=== PATIENT | female | born 1970 | race Caucasian/White ===

== ENCOUNTER 2016-08-04 20:15 | Inpatient (IN) | payer OTHER ==
--- NOTE | ~2016-08-04 | HP ---
Unit #: [id number] #: [id number] Patient: BETH OROZCO [id number] [place] [address] [id number] I MR#: [id number] NAME: BETH OROZCO. ROOM: 64 Age: 46 Sex: F Admission Date: 08/04/2016 : 1970 Attending Physician: Joo Davidson M.D. Admitting Physician: Joo Davidson M.D. Primary Care Physician: Generic Doctor Not In System HISTORY AND PHYSICAL HISTORY OF PRESENT ILLNESS Beth is a 46 year old admitted to [address] [place] [address] with depression and verbalizing wanting to hurt herself. PAST MEDICAL HISTORY 1. Herpes simplex. 2. High blood pressure. 3. Diabetes mellitus. 4. Asthma. 5. Patient was recently diagnosed with a UTI. PAST SURGICAL HISTORY 1. Right carpal tunnel release. 2. x1. 3. Cholecystectomy. 4. Tubal ligation. 5. Uterine ablation. 6. T and A. ALLERGIES No known drug allergies. SOCIAL HISTORY She denies cigarettes, alcohol and illicit drug use. FAMILY HISTORY Medically noncontributory. REVIEW OF SYSTEMS CONSTITUTIONAL: No fever or chills. HEENT: Denies any sore throat, ear pain or runny nose. CARDIOVASCULAR: Denies chest pain, irregular heart rhythm or palpitations. CHEST: Denies shortness of breath or cough. No hemoptysis. GASTROINTESTINAL: Denies nausea, vomiting, diarrhea or chronic constipation. ENDOCRINE: Denies history of increased thirst or urination. No recent significant weight loss or gain. GENITOURINARY: Denies dysuria, frequency, or hematuria. SKIN: Denies any rashes. HEMATOLOGIC: Denies history of increased bleeding or bruising. MUSCULOSKELETAL: Denies any hot, swollen joints. No generalized muscle pain. NEUROLOGIC: Denies problems with vision or speech. No frequent, severe Unit #: [id number] #: [id number] Patient: BETH OROZCO headaches. No numbness, tingling or weakness in any extremities. Denies loss of bladder or bowel control. CURRENT MEDICATIONS 1. HCTZ 25 mg daily. 2. Tenormin 50 mg daily. 3. Abreva topically t.i.d. 4. Zovirax 200 mg 5 times a day x5 days. 5. Glucophage 1000 mg b.i.d. 6. Ambien 5 mg q.h.s. p.r.n. 7. Prozac 20 mg daily. 8. Melatonin p.r.n. 9. Milk of Magnesia p.r.n. 10. Maalox p.r.n. 11. Tylenol p.r.n. 12. Levemir 10 units q.h.s. 13. NovoLog per sliding scale. PHYSICAL EXAMINATION GENERAL: Alert, obese, in no apparent distress. VITAL SIGNS: Blood pressure 150/84, heart rate 80, respirations 16, temperature 98.6. WEIGHT: 135. HEIGHT: 5 feet 0 inches. SKIN: Multiple herpetic lesions noted along upper and lower lip. HEENT: Normocephalic. TMs not viewed. Oral and nasal passages clear. Conjunctivae clear. PERRLA. EOMs intact. NECK: Supple without lymphadenopathy or thyromegaly. HEART: Regular rate and rhythm without murmur. LUNGS: Clear. ABDOMEN: Soft, nontender. : Not done. EXTREMITIES: No evidence of cyanosis, clubbing or edema. Moves all without focal deficit. NEUROLOGICAL: Grossly within normal limits. Cranial Nerves: II: Visual rm are intact. III, IV AND : Extraocular movements are intact. Pupils are equal, round and reactive to light. V: Facial sensation is grossly normal. VII: Facial movements and expression are normal. VIII: Auditory acuity grossly intact. IX, X: Uvula is midline. Phonation is normal. XI: Patient shrugs shoulders and turns head normally. XII: Tongue protrudes in the midline. Sensory and Motor Function: Sensory and motor sensation is grossly normal. Motor: moves all extremities well. Coordination: Gait is normal. Deep Tendon Reflexes: Intact. IMPRESSION Psychiatric admission. RECOMMENDATIONS PSYCHIATRIC: Per psychiatrist. MEDICAL: 1. See no contraindications to participate in facility's activities. 2. Continue Bactrim DS 1 p.o. b.i.d. x3 days, from the emergency room. MEDICAL PROGNOSIS Good. Unit #: [id number] #: [id number] Patient: BETH OROZCO MEDICAL CONDITION Stable. Dictated by... Montse Quintana P.A.-C. for Terry Anderson/fanny TD: 08/05/2016 20:28 JOB #: [id number] HISTORY AND PHYSICAL Page 1 of 1 X Montse Quintana HISTORY AND PHYSICAL
--- NOTE | ~2016-08-04 | CO ---
Unit #: [id number] #: [id number] Patient: LAMBERTO OROZCO [id number] [place] [address] [id number] MR#: [id number] NAME: LAMBERTO OROZCO. ROOM: [facility] Age: 46 Sex: F Admission Date: 08/04/2016 : 1970 Attending Physician: Joo Davidson M.D. Primary Care Physician: Generic Doctor Not In System Consultation Date: 08/05/2016 CONSULTATION REPORT WOODY Campos is a 46-year-old who was recently diagnosed with the UTI. She was started on Bactrim DS. This was outlined and discussed in her admission H and P dated 08/05/2016. Please see H and P dated 08/05/2016. Dictated by... Montse Quintana P.A.-C. for Terry Anderson/mikhail TD: 08/11/2016 02:06 JOB #: [id number] CONSULTATION REPORT Page 1 of 1 X Montse Quintana CONSULTATION REPORT
--- NOTE | ~2016-08-04 | DS ---
Unit #: [id number] #: [id number] Patient: LAMBERTO OROZCO [id number] [facility] [address] [place] [address] [id number] I MR#: [id number] NAME: LAMBERTO OROZCO. ROOM: [facility] Age: 46 Sex: F Admission Date: 08/04/2016 : 1970 Discharge Date: 08/06/2016 Attending Physician: Joo Davidson M.D. Primary Care Physician: Generic Doctor Not In System DISCHARGE SUMMARY REASON FOR ADMISSION The patient is a 46-year-old white female, admitted to the [facility] after reporting suicidal ideation. HOSPITAL COURSE The patient was admitted to the [facility] and placed on suicide precautions. She was begun on fluoxetine, a medication to which she reported history of positive response at a dose of 20 mg daily. She tolerated the medication well. Additionally, Ambien 5 mg at h.s. was added and the patient was started on Bactrim for urinary tract infection as well as acyclovir for a fever blister. By 08/06/2016, the patient was in much brighter spirits and requested discharge and she vehemently denied suicidal ideation and as per her request, discharge was ordered. FINAL DIAGNOSES Major depressive disorder, recurrent, mild; herpes simplex virus-1; urinary tract infection; hypertension; diabetes mellitus. DISPOSITION ON DISCHARGE The patient is discharged on the following medications; Levemir 10 units at bedtime for diabetic management, NovoLog sliding scale for diabetic management, Prozac 20 mg daily for depression, Zovirax 200 mg 5 times daily for fever blister, Ambien 5 mg at h.s. p.r.n. insomnia, Abreva apply t.i.d. for fever blister relief, Glucophage 1000 mg b.i.d. before meals for diabetic management, Tenormin 50 mg once daily for hypertension, Oretic 25 mg once daily for hypertension, Bactrim DS one tablet b.i.d. x3 days for urinary tract infection. DISCHARGE INSTRUCTIONS No dietary or physical restrictions were placed upon the patient at the time of discharge. FOLLOWUP Followup will take place through the auspices of community mental health providers in the [place], [place] area. PROGNOSIS The patient's prognosis is considered good. Dictated by... Joo Davidson M.D. Unit #: [id number] #: [id number] Patient: LAMBERTO OROZCO Kalia ROSEN/mikhail TD: 08/06/2016 23:16 JOB #: [id number] DISCHARGE SUMMARY Page 1 of 1 X Joo Davidson MD X DISCHARGE SUMMARY
--- NOTE | ~2016-08-04 | PA ---
Unit #: [id number] #: [id number] Patient: LAMBERTO OROZCO [id number] [place] [address] [id number] I MR#: [id number] NAME: LAMBERTO OROZCO. ROOM: [facility] Age: 46 Sex: F Admission Date: 08/04/2016 : 1970 Date of Assessment: 08/05/2016 Attending Physician: Joo Davidson M.D. Admitting Physician: Joo Davidson M.D. Primary Care Physician: Generic Doctor Not In System PSYCHIATRIC ASSESSMENT IDENTIFYING INFORMATION The patient is a 46-year-old white female admitted to the [address] [place] [address] Unit with suicidal ideation. CHIEF COMPLAINT None given. INFORMANT(S) Patient, reliability is good. HISTORY OF PRESENT ILLNESS The patient is a 46-year-old white female admitted to the hospital after having been seen at [facility]. The patient reports multiple stressors including her 17-year-old daughter being bullied at school and financial stressors. The patient reports previous treatment with antidepressant medication and reports a history of positive response to fluoxetine. She is not begun on any prescribed psychotropic medications in some time. Most recently having prescribed citalopram, but the patient reports that she has not taken this medication in several months. The patient complains of poor sleep and some loss of appetite. She was voicing positive suicidal ideation with plan to overdose and "jump in the gray" secondary to her inability to swim. She has no prior history of suicide attempts or gestures and has never been psychiatrically hospitalized. She has seen therapists in the past but has never seen a psychiatrist. Her psychotropic medications have been prescribed by her primary care physician. PAST PSYCHIATRIC HISTORY As above. PAST MEDICAL HISTORY He is significant for a history of a current fever blister. The patient also suffers from hypertension and diabetes mellitus. MEDICATIONS Metformin, atenolol, and Celexa. ALLERGIES None. FAMILY HISTORY Noncontributory. Unit #: [id number] #: [id number] Patient: LAMBERTO OROZCO SOCIAL HISTORY The patient lives with her 17-year-old daughter. She is employed at [employer] in [place]. She reports no use of alcohol, tobacco, or street drugs. MENTAL STATUS EXAMINATION Examination at this time reveals the patient to be a well-developed well-nourished female appearing her stated age. She is in no apparent physical distress at the time of the examination. She is awake, alert, and oriented in all spheres. Her mood is dysphoric, her affect constricted. Speech is well coherent. There are no gross deficits in memory or cognition noted. Intelligence is judged to be in the average range based on fund of knowledge. The patient is cooperative throughout the interview. She is currently endorsing positive suicidal ideation. She denies homicidal ideation. She denies any psychotic symptoms. Her judgment and insight appear to be reasonably intact. ASSETS AND LIABILITIES The patient's assets: Motivation for change. Liabilities: Lack of resources. DIAGNOSTIC IMPRESSION 1. Major depressive disorder, severe, recurrent, without psychotic features. 2. Diabetes mellitus. 3. Hypertension. TREATMENT PLAN The patient remains hospitalized for safety and stabilization. Given her history of positive response to fluoxetine, this medication will be restarted at a dose of 20 mg daily. Additionally, we will add Ambien on a p.r.n. basis for sleep, and I will order acyclovir given the fact that the patient is currently suffering from a severe fever blister. ESTIMATED LENGTH OF STAY 5 to 7 days. Dictated by... Joo Davidson M.D. CB/wisam TD: 08/05/2016 14:15 JOB #: [id number] Unit #: [id number] #: [id number] Patient: LAMBERTO OROZCO PSYCHIATRIC ASSESSMENT Page 1 of 1 X Joo Davidson MD PSYCHIATRIC ASSESSMENT
[~2016-08-04 20:15] MED LIST: ACETAMINOPHEN PO; BUSPAR PO; PROZAC PO; TENORETIC 50 TA1 TAB PO
== END 2016-08-06 12:15 | disposition home or self-care (01) | DRG 885 ==
LOC: P2L 20:15
DX: F33.2 Major depressive disorder, recurrent severe without psychotic features (principal); E11.9 Type 2 diabetes mellitus without complications; R45.851 Suicidal ideations; N39.0 Urinary tract infection, site not specified; I10 Essential (primary) hypertension; J45.909 Unspecified asthma, uncomplicated; B00.9 Herpesviral infection, unspecified
CPT/HCPCS: 82947